=== PATIENT | female | born 1955 ===

== ENCOUNTER 2018-02-27 17:04 | Emergency (ER) | payer OTHER ==
[2018-02-27 17:16] VITALS: BMI 29.2
[2018-02-27 17:24] VITALS: O2SAT 97
--- NOTE | 2018-02-27 19:07 | C.PDOC ---
History Of Present Illness <Mavis Padron - Last Filed: 02/27/18 21:12> <Edward Gonsalves - Last Filed: 02/27/18 21:19> 63 F w/ PMHx Gastritis presents to ED w/ 2 day redness on left arm & back. Patient states arm feels warm and itchy and has no relief with lotion and OTC hydrocortisone. Patient denies recent bug bites, outdoor activity, and travel. Patient denies F/C, N/V, chest pain, SOB, abd pain. (GonsalvesEdward Ortega) <Mavis Padron - Last Filed: 02/27/18 21:12> <Richelle Gonsalvess Jordan - Last Filed: 02/27/18 21:19> Time Seen by Provider: 02/27/18 17:16 Chief Complaint (Nursing): Abnormal Skin Integrity Past Medical History - Medical History PMH: Gastritis Family History: States: No Known Family Hx - Social History Hx Alcohol Use: No Hx Substance Use: No - Immunization History Hx Tetanus Toxoid Vaccination: No Hx Influenza Vaccination: No Hx Pneumococcal Vaccination: No <Joy Gonsalveskas Jordan - Last Filed: 02/27/18 21:19> Vital Signs: Last Vital Signs Temp 98.2 F 02/27/18 21:01 Pulse 78 02/27/18 21:01 Resp 18 02/27/18 21:01 BP 151/81 H 02/27/18 21:01 Pulse Ox 97 02/27/18 21:01 Review Of Systems Constitutional: Negative for: Fever, Chills Cardiovascular: Negative for: Chest Pain, Palpitations Respiratory: Negative for: Shortness of Breath Gastrointestinal: Negative for: Nausea, Vomiting, Abdominal Pain Genitourinary: Negative for: Dysuria Skin: Positive for: Rash <GonsalvesEdward Jordan - Last Filed: 02/27/18 21:19> Physical Exam - Physical Exam Appears: Non-toxic Skin: Warm, Rash, Other (Warm, blanchable, and diffuse erythema on lateral part of left arm & mid to upper back. Back has approx. 1 cm of raised, nodule region w/ skin break ) Head: Atraumatic, Normacephalic Nose: Normal Oral Mucosa: Moist Cardiovascular: Rhythm Regular, No Edema Respiratory: Normal Breath Sounds, No Rales, No Rhonchi, No Wheezing Gastrointestinal/Abdominal: Normal Exam, Bowel Sounds, Soft Extremity: Normal ROM, No Deformity Pulses: Left Radial: Normal, Right Radial: Normal Neurological/Psych: Oriented x3, Normal Speech, Normal Motor, Normal Sensation <Edward Gonsalves - Last Filed: 02/27/18 21:19> ED Course And Treatment Pulse Ox Interpretation: Normal Reevaluation Time: 21:12 Reassessment Condition: Improved <Mavis Padron - Last Filed: 02/27/18 21:12> O2 Sat by Pulse Oximetry: 97 <Edward Gonsalves - Last Filed: 02/27/18 21:19> Supervising Attending Note - Supervising Attending Note Comment: RESIDENT - Attestation: I have personally seen and examined this patient.: Yes I have fully participated in the care of the patient.: Yes I have reviewed all pertinent clinical information, including history, physical exam and plan: Yes <Mavis Padron - Last Filed: 02/27/18 21:12> <Edward Gonsalves - Last Filed: 02/27/18 21:19> - Notes: Notes:: RASH X 2 DAYS. +ITCH. NO RELIEF OTC MEDS. EXAM ABOVE. NO ANGIOEDEMA. VSS. IV STEROID, BENADRYL, PEPCID REASSESS (Mavis Padron) Disposition Counseled Patient/Family Regarding: Diagnosis, Need For Followup, Rx Given - Disposition Disposition Time: 21:12 <Mavis Padron - Last Filed: 02/27/18 21:12> <Edward Gonsalves - Last Filed: 02/27/18 21:19> - Disposition Referrals: YOUR,PMD [Other] Disposition: HOME/ ROUTINE Condition: IMPROVED Prescriptions: DiphenhydrAMINE [Benadryl] 50 mg PO TID PRN #30 cap PRN Reason: Itching / Pruritus Famotidine [Pepcid AC] 10 mg PO DAILY #4 tablet predniSONE [Prednisone] 60 mg PO DAILY #12 tab Instructions: Hives (DC) Forms: [facility] (Thai) Print Language: ARMENIAN - Clinical Impression Clinical Impression: Hives
[2018-02-27] MEDS ORDERED: MethylPREDNISolone 40 mg Vial IVP STA (19:56)
[2018-02-27] MEDS ORDERED: DiphenhydrAMINE 50 mg/ml Inj IVP STA (19:56)
[2018-02-27] MEDS ORDERED: DiphenhydrAMINE 50 mg/ml Inj ONE (20:10)
[2018-02-27] MEDS ORDERED: MethylPREDNISolone 40 mg Vial ONE (20:10)
[2018-02-27 21:01] VITALS: BP 151/81; PULSE 78; RESP 18; TEMP 98.2
== END 2018-02-27 21:18 | disposition home or self-care (01) ==
LOC: C.ER 17:04
DX: L50.9 Urticaria, unspecified (principal)
CPT/HCPCS: 96374; 96375; 99284; J1200; J2920